=== PATIENT | female | born 1950 | race Caucasian/White ===

== ENCOUNTER 2017-12-04 06:56 | Inpatient (IN) | payer OTHER ==
[~2017-12-04] VITALS: Ht 160 cm; Wt 84.8 kg
[2017-12-04] VITALS (9 sets, daily range): BP systolic 107–128
[2017-12-04] MEDS ORDERED: NACL 0.9% 1,000 ML IV ONE ×2 (07:48→10:30)
[2017-12-04] MEDS ORDERED: ONDANSETRON HCL 4 MG/2 ML VIAL IVP ONE ×2 (08:00→13:00)
[2017-12-04] MEDS ORDERED: MORPHINE 4 MG/ML INJ. SYRINGE IVP ONE (08:00)
[2017-12-04 08:35] LABS: BASOPHILS # (AUTO) 0.1 K/uL (0.0-0.2); EOSINOPHILS # (AUTO) 0.3 K/uL (0.0-0.4); HEMATOCRIT 40.1 % (36-48); HEMOGLOBIN 13.2 g/dL (12.0-16.0); LYMPHOCYTES # (AUTO) 1.5 K/uL (1.0-5.5); LYMPHOCYTES % (AUTO) 24.9 % (20.5-51.5); MEAN CORPUSCULAR HEMOGLOBIN 30 pg (27-31); MEAN CORPUSCULAR HGB CONC 33 % (32-36); MEAN CORPUSCULAR VOLUME 90 fL (79.0-98.0); MONOCYTES # (AUTO) 0.4 K/uL (0.0-1.0); MONOCYTES % (AUTO) 6.9 % (1.7-9.3); NEUTROPHILS # (AUTO) 3.8 K/uL (1.8-7.7); NEUTROPHILS % (AUTO) 62.2 % (40.0-70.0); PLATELET COUNT (AUTO) 164 K/uL (130-430); RED BLOOD CELL COUNT(AUTO) 4.45 MIL/uL (4.2-6.2); RED CELL DISTRIBUTION WIDTH 13.5 % (9.0-15.0); WHITE BLOOD COUNT (AUTO) 6.1 K/uL (4.8-10.8)
[2017-12-04 08:47] LABS: CALCIUM 9.4 mg/dL (8.4-11.0); CREATININE 0.58 mg/dL (0.55-1.30); POTASSIUM 3.8 mmol/L (3.5-5.1)
[2017-12-04 08:50] LABS: PROTHROMBIN TIME 10.1 SECS (9.5-12.5)
[2017-12-04 08:51] LABS: ALBUMIN 3.7 g/dL (3.4-4.8); TOTAL BILIRUBIN 0.8 mg/dL (0.0-1.0)
[2017-12-04 09:25] LABS: BILIRUBIN,URINE NEGATIVE (NEGATIVE); BLOOD, URINE NEGATIVE (NEGATIVE); CLARITY/URINE CLEAR (CLEAR); COLOR,URINE YELLOW (YELLOW); GLUCOSE,URINE NEGATIVE (NEGATIVE); KETONES,URINE NEGATIVE (NEGATIVE); LEUKOCYTE ESTERASE ,URINE NEGATIVE (NEGATIVE); NITRITE, URINE NEGATIVE (NEGATIVE); PROTEIN URINE NEGATIVE (NEGATIVE); UROBILINOGEN,URINE 0.2 (0.2-1.0)
[2017-12-04] MEDS ORDERED: MORPHINE 4 MG/ML INJ. SYRINGE IVP PRN (11:30)
[2017-12-04] MEDS ORDERED: ALBUTEROL SULFATE 0.083% 2.5 MG/3 ML VIAL.NEB INH PRN (11:30)
[2017-12-04] MEDS ORDERED: MORPHINE 2 MG/ML INJ. SYRINGE IVP PRN (11:30)
[2017-12-04] MEDS ORDERED: IPRATROPIUM BROM 0.5 MG/2.5 ML VIAL.NEB (ATROVENT) INH PRN (11:30)
[2017-12-04] MEDS: D5NS 1,000 ML IV SCH (12:28)
[2017-12-04] MEDS ORDERED: POLYMYXIN 500,000/BACIT.10,000 UNITS in NS IRR 1 L IR ONE (12:42)
[2017-12-04] MEDS ORDERED: LEVOFLOXACIN 750 mg/D5W 150 mL IVPB IV ONE (13:00)
[2017-12-04] MEDS ORDERED: LEVOFLOXACIN 500 MG/D5W 100 ML PIGGYBACK IV ONE (13:00)
[2017-12-04] MEDS ORDERED: BUPIVACAINE LIPOSOME/PF 266 MG/20 ML VIAL INFIL ONE (13:00)
[2017-12-04] MEDS ORDERED: LR 1,000 ML IV.SOLN IV ONE (13:00)
[2017-12-04] MEDS ORDERED: BUPIVACAINE /PF 0.75% 10 ML VIAL INJ ONE (13:00)
[2017-12-04] MEDS ORDERED: MIDAZOLAM HCL 5 MG/5 ML VIAL IVP ONE (13:00)
[2017-12-04] MEDS ORDERED: METOCLOPRAMIDE HCL 10 MG/2 ML VIAL IVP ONE (13:00)
[2017-12-04] MEDS ORDERED: NS IRRIG SOLN 1000 ML IR ONE (13:00)
[2017-12-04] MEDS ORDERED: MORPHINE SULFATE 10MG/10ML PF AMP EP ONE (13:00)
[2017-12-04] MEDS ORDERED: ePHEDrine sulfate 50 MG/ML VIAL IVP ONE (13:00)
[2017-12-04] MEDS ORDERED: PROMETHAZINE HCL 50 MG/ML AMP IM ONE (13:00)
[2017-12-04] MEDS ORDERED: ONDANSETRON HCL 4 MG/2 ML VIAL IVP PRN ×2 (14:15)
[2017-12-04] MEDS ORDERED: KETOROLAC TROMETHAMINE 60 MG/2 ML VIAL IM PRN (14:15)
[2017-12-04] MEDS ORDERED: NALOXONE HCL 0.4 MG/ML AMP (NARCAN) IVP PRN ×2 (14:15)
[2017-12-04] MEDS ORDERED: fentaNYL CITRATE/PF 100 MCG/2 ML AMP IVP PRN ×2 (14:15)
[2017-12-04] MEDS ORDERED: NALBUPHINE HCL 10 MG/ML AMP IVP PRN (14:15)
[2017-12-04] MEDS ORDERED: DIPHENHYDRAMINE INJ 50 MG/ML VIAL IVP PRN (14:15)
[2017-12-04] MEDS ORDERED: MORPHINE SULFATE 10MG/10ML PF AMP SP SCH (14:15)
[2017-12-04] MEDS ORDERED: KETOROLAC TROMETHAMINE 30 MG VIAL IVP PRN (14:15)
[2017-12-04] MEDS ORDERED: DIPHENHYDRAMINE INJ 50 MG/ML VIAL ONE (15:36)
[2017-12-04] MEDS ORDERED: DIPHENHYDRAMINE INJ 50 MG/ML VIAL IVP ONE (17:15)
[2017-12-05] MEDS: D5NS 1,000 ML IV SCH ×4 (02:15→21:57)
[2017-12-05] MEDS: IPRATROPIUM BROM 0.5 MG/2.5 ML VIAL.NEB (ATROVENT) INH SCH ×5 (07:23→23:29)
[2017-12-05 08:00] VITALS: BP_SYST 117
[2017-12-05 12:38] VITALS: BP_SYST 130
[2017-12-05] MEDS: ALBUTEROL SULFATE 0.083% 2.5 MG/3 ML VIAL.NEB INH SCH ×5 (14:12→23:29)
[2017-12-05 16:58] VITALS: BP_SYST 128
[2017-12-05 20:00] VITALS: BP_SYST 126
[2017-12-05] MEDS: ACETAMINOPHEN 325 MG TABLET PO PRN (20:11)
[2017-12-06 00:45] VITALS: BP_SYST 108
[2017-12-06] MEDS: IPRATROPIUM BROM 0.5 MG/2.5 ML VIAL.NEB (ATROVENT) INH SCH ×6 (03:00→23:00)
[2017-12-06] MEDS: ALBUTEROL SULFATE 0.083% 2.5 MG/3 ML VIAL.NEB INH SCH ×6 (03:00→23:00)
[2017-12-06] MEDS: D5NS 1,000 ML IV SCH ×2 (07:42→18:18)
[2017-12-06 08:00] VITALS: BP_SYST 125
[2017-12-06] MEDS: ACETAMINOPHEN 325 MG TABLET PO PRN (08:01)
[2017-12-06 12:00] VITALS: BP_SYST 113
[2017-12-06] MEDS: MORPHINE 4 MG/ML INJ. SYRINGE IVP PRN ×2 (13:54→22:29)
[2017-12-06 16:00] VITALS: BP_SYST 112
[2017-12-06 20:00] VITALS: BP_SYST 126
[2017-12-07 00:05] VITALS: BP_SYST 128
[2017-12-07] MEDS: ALBUTEROL SULFATE 0.083% 2.5 MG/3 ML VIAL.NEB INH SCH ×3 (03:00→11:00)
[2017-12-07] MEDS: IPRATROPIUM BROM 0.5 MG/2.5 ML VIAL.NEB (ATROVENT) INH SCH ×3 (03:00→11:00)
[2017-12-07] MEDS: ACETAMINOPHEN 325 MG TABLET PO PRN (05:37)
[2017-12-07] MEDS: D5NS 1,000 ML IV SCH (08:17)
[2017-12-07 08:24] VITALS: BP_SYST 102
[2017-12-07 09:52] LABS: BASOPHILS # (AUTO) 0.1 K/uL (0.0-0.2); BASOPHILS % (AUTO) 0.6 % (0.0-2.0); EOSINOPHILS # (AUTO) 0.2 K/uL (0.0-0.4); EOSINOPHILS % (AUTO) 1.7 % (0.0-4.0); HEMATOCRIT 35.5 % (36-48); HEMOGLOBIN 11.9 g/dL (12.0-16.0); LYMPHOCYTES # (AUTO) 1.4 K/uL (1.0-5.5); LYMPHOCYTES % (AUTO) 15.6 % (20.5-51.5); MEAN CORPUSCULAR HEMOGLOBIN 30 pg (27-31); MEAN CORPUSCULAR HGB CONC 34 % (32-36); MEAN CORPUSCULAR VOLUME 90 fL (79.0-98.0); MONOCYTES # (AUTO) 0.5 K/uL (0.0-1.0); MONOCYTES % (AUTO) 5.3 % (1.7-9.3); NEUTROPHILS % (AUTO) 76.8 % (40.0-70.0); PLATELET COUNT (AUTO) 161 K/uL (130-430); RED BLOOD CELL COUNT(AUTO) 3.95 MIL/uL (4.2-6.2); RED CELL DISTRIBUTION WIDTH 13.2 % (9.0-15.0); WHITE BLOOD COUNT (AUTO) 9.2 K/uL (4.8-10.8)
[2017-12-07 10:04] LABS: CALCIUM 8.6 mg/dL (8.4-11.0); CREATININE 0.66 mg/dL (0.55-1.30); POTASSIUM 3.1 mmol/L (3.5-5.1)
[2017-12-07 10:09] LABS: ALBUMIN 2.9 g/dL (3.4-4.8); TOTAL BILIRUBIN 0.7 mg/dL (0.0-1.0)
[2017-12-07 11:38] VITALS: BP_SYST 102
[2017-12-07 11:43] VITALS: BP_SYST 120
[2017-12-07] MEDS ORDERED: POTASSIUM CHLORIDE 20 MEQ TAB.PRT.SR PO ONE (12:15)
[2017-12-07 13:29] VITALS: BP_SYST 102
[2017-12-07] MEDS ORDERED: CIPR-211 PO (13:33)
== END 2017-12-07 14:50 | disposition home or self-care (01) | DRG 337 ==
LOC: SED 06:56 → SMU 10:16 → STU 19:07 → SMU 12-06 11:34
PROVIDERS: ADMIT Internal Medicine Hospice and Palliative Medicine; ATTEND Internal Medicine Hospice and Palliative Medicine
PROC: 0DNU0ZZ Release Omentum, Open Approach (ICD-10-PCS; 2017-12-04)
PROC: 0WUF0JZ Supplement Abdominal Wall with Synthetic Substitute, Open Approach (ICD-10-PCS; 2017-12-04)
PROC: 0WJG0ZZ Inspection of Peritoneal Cavity, Open Approach (ICD-10-PCS; principal; 2017-12-04 13:00)
DX: K43.0 Incisional hernia with obstruction, without gangrene (principal); I10 Essential (primary) hypertension; K21.9 Gastro-esophageal reflux disease without esophagitis; J45.909 Unspecified asthma, uncomplicated; K66.0 Peritoneal adhesions (postprocedural) (postinfection); Z85.3 Personal history of malignant neoplasm of breast; Z79.899 Other long term (current) drug therapy
CPT/HCPCS: 36415; 71045; 80053; 81003; 82150-TC; 82550-TC; 83690-TC; 84484; 85025; 85610-TC; 85730-TC; 87081; 93005; 94010; 94640; 96361; 96374; 96375; 99285; C1781; C9290; J1200; J1885; J1956; J2250; J2270; J2274; J2405; J2550; J2765; J3490; J7042; J7120; J7613

== ENCOUNTER 2018-01-09 15:07 | Emergency (ER) | payer OTHER ==
[~2018-01-09] VITALS: Ht 160 cm; Wt 84.8 kg
[~2018-01-09 15:07] MED LIST: CIPR-211 PO
[2018-01-09 15:14] VITALS: BP_SYST 132
[2018-01-09 15:58] VITALS: BP_SYST 119
== END 2018-01-09 15:58 | disposition home or self-care (01) ==
LOC: SED 15:07
DX: T81.31XA Disruption of external operation (surgical) wound, not elsewhere classified, initial encounter (principal); K21.9 Gastro-esophageal reflux disease without esophagitis; I10 Essential (primary) hypertension; Z90.49 Acquired absence of other specified parts of digestive tract; Z88.5 Allergy status to narcotic agent
CPT/HCPCS: 99281

== ENCOUNTER 2022-01-29 11:21 | Inpatient (IN) | payer OTHER ==
[~2022-01-29] VITALS: Ht 160 cm; Wt 80.0 kg
[~2022-01-29 11:21] MED LIST changes: -CIPR-211 PO; +CIPR500T5 PO
[2022-01-29 11:30] VITALS: BP_SYST 124
[2022-01-29 12:41] LABS: BASOPHILS # (AUTO) 0.1 K/uL (0.0-0.2); BASOPHILS % (AUTO) 0.9 % (0.0-2.0); HEMATOCRIT 41.8 % (36-48); HEMOGLOBIN 14.3 g/dL (12.0-16.0); LYMPHOCYTES # (AUTO) 0.8 K/uL (1.0-5.5); LYMPHOCYTES % (AUTO) 9.3 % (20.5-51.5); MEAN CORPUSCULAR HEMOGLOBIN 29 pg (27-31); MEAN CORPUSCULAR HGB CONC 34 % (32-36); MEAN CORPUSCULAR VOLUME 86 fL (79.0-98.0); MONOCYTES # (AUTO) 0.3 K/uL (0.0-1.0); NEUTROPHILS # (AUTO) 7.7 K/uL (1.8-7.7); NEUTROPHILS % (AUTO) 86.8 % (40.0-70.0); PLATELET COUNT (AUTO) 200 K/uL (130-430); RED BLOOD CELL COUNT(AUTO) 4.86 MIL/uL (4.2-6.2); RED CELL DISTRIBUTION WIDTH 15.4 % (9.0-15.0); WHITE BLOOD COUNT (AUTO) 8.9 K/uL (4.8-10.8)
[2022-01-29 12:57] LABS: ALBUMIN 4.2 g/dL (3.4-4.8); CALCIUM 10.6 mg/dL (8.4-11.0); CREATININE 0.78 mg/dL (0.55-1.30); TOTAL BILIRUBIN 1.3 mg/dL (0.0-1.0)
[2022-01-29 13:44] LABS: POTASSIUM 4.1 mmol/L (3.5-5.1)
[2022-01-29 14:47] LABS: AMYLASE 91 U/L (0-100); C-REACTIVE PROTEIN QUANT < 0.2 mg/dL (0-0.5); LACTATE DEHYDROGENASE 286 U/L (81-234)
[2022-01-29] MEDS ORDERED: ONDANSETRON HCL 4 MG/2 ML VIAL IVP ONE (17:00)
[2022-01-29] MEDS ORDERED: MORPHINE 2 MG/ML INJ. SYRINGE IVP ONE (17:00)
[2022-01-29] MEDS: D5/0.45 NS 1,000 ML IV SCH (17:15)
[2022-01-29 22:08] VITALS: BP_SYST 135
[2022-01-30 01:01] VITALS: BP_SYST 133
[2022-01-30] MEDS: D5/0.45 NS 1,000 ML IV SCH (04:00)
[2022-01-30 08:00] VITALS: BP_SYST 109
[2022-01-30 12:00] VITALS: BP_SYST 107; BP_SYST 109
[2022-01-30 19:45] VITALS: BP_SYST 111
[2022-01-31 04:04] VITALS: BP_SYST 113
[2022-01-31] MEDS ORDERED: NORMAL SALINE 5 ML DISP.SYRIN IVF SCH (06:00)
[2022-01-31 08:00] VITALS: BP_SYST 130
[2022-01-31 10:16] VITALS: BP_SYST 130
== END 2022-01-31 12:00 | disposition home or self-care (01) | DRG 389 ==
LOC: SED 11:21 → SMU 17:10
PROVIDERS: ADMIT Preventive Medicine Preventive Medicine/Occupational Environmental Medicine; ATTEND Preventive Medicine Preventive Medicine/Occupational Environmental Medicine
PROC: 0D9670Z Drainage of Stomach with Drainage Device, Via Natural or Artificial Opening (ICD-10-PCS; principal; 2022-01-29)
DX: K56.699 Other intestinal obstruction unspecified as to partial versus complete obstruction (principal); E87.1 Hypo-osmolality and hyponatremia; Z20.822 Contact with and (suspected) exposure to COVID-19; I10 Essential (primary) hypertension; K21.9 Gastro-esophageal reflux disease without esophagitis; K43.9 Ventral hernia without obstruction or gangrene; R73.9 Hyperglycemia, unspecified; R74.01 Elevation of levels of liver transaminase levels; Z88.5 Allergy status to narcotic agent
CPT/HCPCS: 36415; 71045; 74018; 74021; 76376; 80053; 82150; 83605; 83615; 83690; 85025; 86140; 99285